=== PATIENT | female | born 1940 | race Caucasian/White ===

== ENCOUNTER 2017-02-21 08:14 | Outpatient (RCR) | payer MEDICARE ==
[2017-02-19 09:10] VITALS: BP 134/71
[2017-02-19] MEDS: ACETAMINOPHEN 325 MG TABLET/CAPLET (TYLENOL) PO SCH (09:15)
[2017-02-19] MEDS: diphenhydrAMINE 50 MG/ML INJ (BENADRYL) IV SCH (09:16)
[2017-02-19] MEDS: IRON SUCROSE IV SCH ×2 (09:43)
[2017-02-19] MEDS: SODIUM CHLORIDE IV SCH ×2 (09:43)
[2017-02-19 10:00] VITALS: BP 134/71
[~2017-02-21] VITALS: Ht 167.6 cm; Wt 77.1 kg
[~2017-02-21 08:14] MED LIST: ASP81TEC PO; ATOR20TA66 PO; AZTH250C PO; AZTH50T PO; CHOL378P PO; CTLP20T PO; CYAN25005 SL; DICL75TA2 PO; FISH OIL 1,2001 EAC1 PO; GABA-488 PO; GEMF600T3 PO; GLUC1TAB60 PO; GLUC500C2 PO; GMFB600T PO; HYDR-3454 PO; HYDR12.56 PO; LACT1CAP62 PO; LOVA10TA PO; MULT1CAP27 PO; OMEP20TA2 PO; POTA20TA7 PO; PRD20T PO; VERA240C2 PO; VITAMIN B PO
[2017-02-21] MEDS: ACETAMINOPHEN 325 MG TABLET/CAPLET (TYLENOL) PO SCH (08:23)
[2017-02-21] MEDS: diphenhydrAMINE 50 MG/ML INJ (BENADRYL) IV SCH (08:24)
[2017-02-21] MEDS: IRON SUCROSE IV SCH ×2 (08:39)
[2017-02-21] MEDS: SODIUM CHLORIDE IV SCH ×2 (08:39)
[2017-02-21 08:55] VITALS: BP 124/74
== END 2017-05-20 | disposition home or self-care (01) ==
LOC: SDC 08:14
PROVIDERS: ATTEND Nurse Practitioner Family
DX: D50.9 Iron deficiency anemia, unspecified (principal)
CPT/HCPCS: 96365

== ENCOUNTER 2017-06-04 13:09 | Emergency (ER) | payer MEDICARE ==
[~2017-06-04] VITALS: Ht 167.6 cm; Wt 71.7 kg
[2017-06-04] MEDS ORDERED: ASPIRIN 81 MG CHEW (CHILDREN'S ASA) PO ONE (13:30)
[2017-06-04 13:31] LABS: BASOPHILS % (AUTO) 1 % (0-10); EOSINOPHILS # (AUTO) 0.3 10^3/uL (0.0-0.3); EOSINOPHILS % (AUTO) 4 % (0-10); LYMPHOCYTES # (AUTO) 0.9 X 10^3 (1.0-4.0); LYMPHOCYTES % (AUTO) 11 % (12-44); MEAN CORPUSCULAR HEMOGLOBIN 31 PG (25-34); MEAN CORPUSCULAR HGB CONC 32 G/DL (32-36); MEAN CORPUSCULAR VOLUME 98 FL (80-99); MEAN PLATELET VOLUME 9.5 FL (7.4-10.4); MONOCYTES # (AUTO) 0.6 X 10^3 (0.0-1.0); MONOCYTES % (AUTO) 7 % (0-12); NEUTROPHILS # (AUTO) 6.3 X 10^3 (1.8-7.8); NEUTROPHILS % (AUTO) 78 % (42-75); PLATELET COUNT 345 10^3/uL (130-400); RED BLOOD COUNT 3.18 10^6/uL (4.35-5.85); RED CELL DISTRIBUTION WIDTH 14.2 % (10.0-14.5); WHITE BLOOD COUNT 8.1 10^3/uL (4.3-11.0)
[2017-06-04 13:41] LABS: INR 0.9 (0.8-1.4); PROTHROMBIN TIME PATIENT 12.1 SEC (12.2-14.7)
--- NOTE | 2017-06-04 13:48 | ED Chest Pain ---
General Chief Complaint: Chest Pain Stated Complaint: CHEST PAIN Nursing Triage Note: Pt c/o chest pain in L upper chest since (05/31). Pt reports pain has gotten worse over past 4 days. Pt sent here from Dr. Oconnor's office. Nursing Sepsis Screen: No Definite Risk Source: patient Exam Limitations: no limitations History of Present Illness Time seen by provider: 13:10 Initial Comments Here with complaint of left-sided chest discomfort is been going on essentially for the last year but worse over the last 4 days and has been persistent. She was sent here from Dr. Oocnnor's office for evaluation. Denies breathing problems or sweating. Denies fever or chills. Pain is to the left side and occasionally radiates to the left shoulder. She states that briefly radiated to the right shoulder. She states this is been persistent since onset 4 days ago without relief. She is taking [id number] Excedrin for the pain which helps a little bit. Timing/Duration: 4-5 days Severity/Quality: moderate, aching Location: central Radiation: shoulders Activities at Onset: none Prior CP/Workup: cardiac cath, echocardiography, stress test Modifying Factors: improves with rest ASA po PROCEDURES ANALYST: No NTG SL PROCEDURES ANALYST: No Associated Symptoms: No abdominal pain, No back pain, No diaphoresis, No fatigue, No fever/chills, No nausea/vomiting, No shortness of breath, No weakness Allergies and Home Medications Allergies Coded Allergies: pravastatin (Unverified Adverse Reaction, Mild, EXTREME FATIGUE, 09/02/13) Home Medications Atorvastatin 20 Mg Tablet, 20 MG PO DAILY, #0 Prescribed by: PRANAY VAZQUEZ on 12/30/14 1220 Azathioprine 50 Mg Tablet, 1 TAB PO TID, #90 (Reported) Citalopram Hydrobromide 20 Mg Tablet, 20 MG PO DAILY, (Reported) Cyanocobalamin 2,500 Mcg Tab.subl, 2,500 MCG SL DAILY, #0 Prescribed by: PRANAY VAZQUEZ on 12/30/14 1220 Diclofenac Sodium 75 Mg Tablet.dr, 75 MG PO BID, (Reported) Gabapentin 300 Mg Capsule, 300 MG PO TID, #0 Prescribed by: PRANAY VAZQUEZ on 12/30/14 1220 Gemfibrozil 600 Mg Tablet, 1 EACH PO BID, (Reported) Awudiirb-Vcojgey-Zolt 149-Hyal 1 Each Tablet, 1 TAB PO BID, (Reported) GLUCOSAMINE 1500MG CHONDROITIN 1200MG Multivitamins 1 Each Capsule, 1 CAP PO DAILY, (Reported) COMPLETE WOMEN 50+ [place]-3 Fatty Acids/Fish Oil 1 Each Capsule, 1,200 MG PO BID, (Reported) Verapamil Hcl 240 Mg Cap24h.pel, 240 MG PO DAILY, (Reported) Review of Systems Constitutional: see HPI, No chills, No fever EENTM: No Symptoms Reported Respiratory: No Symptoms Reported Cardiovascular: See HPI, Chest Pain, Denies Edema Gastrointestinal: No Symptoms Reported Genitourinary: No Symptoms Reported Musculoskeletal: No joint pain, muscle pain Skin: no symptoms reported Psychiatric/Neurological: No Symptoms Reported All Other Systems Reviewed Negative Unless Noted: Yes Past Hhcmawn-Pjvxkf-Zcgzgv Hx Patient Social History Alcohol Use: Denies Use Recreational Drug Use: No Smoking Status: Former Smoker Type Used: Cigarettes Recent Foreign Travel: No Contact w/Someone Who Travel: No Recent Infectious Disease Expo: No Immunizations Up To Date Date of Pneumonia Vaccine: Oct 24, 2012 Date of Influenza Vaccine: Aug 19, 2014 Seasonal Allergies Seasonal Allergies: No Surgeries HX Surgeries: Yes (HERNIATED DISK, ROTATOR CUFF, RIGHT TARSAL TUNNEL) Surgeries: Tubal Ligation Respiratory Hx Respiratory Disorders: No Cardiovascular Hx Cardiac Disorders: Yes Cardiac Disorders: Irregular Heartbeat Neurological Hx Neurological Disorders: No Reproductive System Hx Reproductive Disorders: No Sexually Transmitted Disease: No HIV/AIDS: No Female Reproductive Disorders: Denies Genitourinary Hx Genitourinary Disorders: No Gastrointestinal Hx Gastrointestinal Disorders: Yes (REFLUX; CROHNS DISEASE) Gastrointestinal Disorders: Gastroesophageal Reflux, Diverticulosis, Irritable Bowel Musculoskeletal Hx Musculoskeletal Disorders: Yes Musculoskeletal Disorders: Arthritis Endocrine Hx Endocrine Disorders: No HEENT HX ENT Disorders: No Cancer Hx Cancer: No Psychosocial Hx Psychiatric Problems: Yes Behavioral Health Disorders: Anxiety Integumentary HX Skin/Integumentary Disorder: No Blood Transfusions Hx Blood Disorders: No Reviewed Nursing Assessment Reviewed/Agree w Nursing PMH: Yes Family Medical History Significant Family History: Heart Disease, Hypertension Physical Exam Vital Signs Vital Sign - Last 12Hours 06/04/17 13:19 Temp 98.4 Pulse 74 Resp 18 B/P (MAP) 136/75 Pulse Ox 95 O2 Delivery Room Air Capillary Refill : Less Than 3 Seconds General Appearance: No Apparent Distress, WD/WN HEENT: PERRL/EOMI, Pharynx Normal Neck: Non Tender, Supple Respiratory: Lungs Clear, Normal Breath Sounds Cardiovascular: Regular Rate, Rhythm, No Murmur Gastrointestinal: Non Tender, Soft Extremity: Normal Capillary Refill, Normal Inspection, Non Tender Neurologic/Psychiatric: Alert, Oriented x3 Skin: Normal Color, Warm/Dry Progress/Results/Core Measures Results/Orders Lab Results Laboratory Tests Test 06/04/17 13:23 Range/Units White Blood Count 8.1 4.3-11.0 10^3/uL Red Blood Count 3.18 L 4.35-5.85 10^6/uL Hemoglobin 9.8 L 11.5-16.0 G/DL Hematocrit 31 L 35-52 % Mean Corpuscular Volume 98 80-99 FL Mean Corpuscular Hemoglobin 31 25-34 PG Mean Corpuscular Hemoglobin Concent 32 32-36 G/DL Red Cell Distribution Width 14.2 10.0-14.5 % Platelet Count 345 130-400 10^3/uL Mean Platelet Volume 9.5 7.4-10.4 FL Neutrophils (%) (Auto) 78 H 42-75 % Lymphocytes (%) (Auto) 11 L 12-44 % Monocytes (%) (Auto) 7 0-12 % Eosinophils (%) (Auto) 4 0-10 % Basophils (%) (Auto) 1 0-10 % Neutrophils # (Auto) 6.3 1.8-7.8 X 10^3 Lymphocytes # (Auto) 0.9 L 1.0-4.0 X 10^3 Monocytes # (Auto) 0.6 0.0-1.0 X 10^3 Eosinophils # (Auto) 0.3 0.0-0.3 10^3/uL Basophils # (Auto) 0.0 0.0-0.1 10^3/uL Prothrombin Time 12.1 L 12.2-14.7 SEC INR Comment 0.9 0.8-1.4 Activated Partial Thromboplast Time 27 24-35 SEC D-Dimer 0.51 H 0.00-0.49 UG/ML Sodium Level 143 135-145 MMOL/L Potassium Level 3.5 L 3.6-5.0 MMOL/L Chloride Level 110 H 98-107 MMOL/L Carbon Dioxide Level 23 21-32 MMOL/L Anion Gap 10 5-14 MMOL/L Blood Urea Nitrogen 12 7-18 MG/DL Creatinine 0.76 0.60-1.30 MG/DL Estimat Glomerular Filtration Rate > 60 BUN/Creatinine Ratio 16 Glucose Level 111 H 70-105 MG/DL Calcium Level 8.7 8.5-10.1 MG/DL Magnesium Level 1.8 1.8-2.4 MG/DL Total Bilirubin 0.4 0.1-1.0 MG/DL Aspartate Amino Transf (AST/SGOT) 9 5-34 U/L Alanine Aminotransferase (ALT/SGPT) 11 0-55 U/L Alkaline Phosphatase 65 40-136 U/L Myoglobin 14.8 10.0-92.0 NG/ML Troponin I < 0.30 <0.30 NG/ML B-Type Natriuretic Peptide 60.6 <100.0 PG/ML Total Protein 6.3 L 6.4-8.2 GM/DL Albumin 3.7 3.2-4.5 GM/DL Amylase Level 51 25-125 U/L Lipase 15 8-78 U/L My Orders Orders - ROGER COFFEY MD Cbc With Automated Diff (06/04/17 13:20) Magnesium (06/04/17 13:20) Chest 1 View, Ap/Pa Only (06/04/17 13:20) Ekg Tracing (06/04/17 13:20) Cardiac Profile 1 (06/04/17 13:20) Comprehensive Metabolic Panel (06/04/17 13:20) Myoglobin Serum (06/04/17 13:20) Protime With Inr (06/04/17 13:20) Partial Thromboplastin Time (06/04/17 13:20) O2 (06/04/17 13:20) Monitor-Rhythm Ecg Trace Only (06/04/17 13:20) Lipid Panel (06/05/17 06:00) Aspirin Chewable Tablet (Baby Aspirin Ch (06/04/17 13:30) Saline Lock/Iv-Start (06/04/17 13:20) Lipase (06/04/17 13:20) Amylase (06/04/17 13:20) BNP (06/04/17 13:20) Fibrin Degradation Products (06/04/17 13:20) Ns Iv 1000 Ml (Sodium Chloride 0.9%) (06/04/17 14:05) Ct Angio Chest W (06/04/17 14:05) Iohexol Injection (Omnipaque 350 Mg/Ml 1 (06/04/17 14:15) Ns (Ivpb) (Sodium Chloride 0.9% Ivpb Bag (06/04/17 14:15) Ketorolac Injection (Toradol Injection) (06/04/17 15:01) Medications Given in ED Current Medications Medications Dose Ordered Sig/Suzanne Route Start Time Stop Time Status Last Admin Dose Admin Aspirin 324 mg ONCE ONCE PO 06/04/17 13:30 06/04/17 13:31 DC 06/04/17 13:37 324 MG Iohexol 150 ml ONCE ONCE IV 06/04/17 14:15 06/04/17 14:16 DC 06/04/17 14:29 125 ML Sodium Chloride 100 ml ONCE ONCE IV 06/04/17 14:15 06/04/17 14:16 DC 06/04/17 14:29 80 ML Sodium Chloride 1,000 ml @ 0 mls/hr Q0M ONCE IV 06/04/17 14:05 06/04/17 14:07 DC 06/04/17 14:17 1,000 MLS/HR Vital Signs/I&O Vital Sign - Last 12Hours 06/04/17 13:19 Temp 98.4 Pulse 74 Resp 18 B/P (MAP) 136/75 Pulse Ox 95 O2 Delivery Room Air Blood Pressure Mean: 95 Progress Note : Progress Note Seen and evaluated. IV, labs, EKG and chest x-ray ordered. ASA 324 mg by mouth given. Monitor patient. CT angiogram of the chest ordered due to elevated d-dimer. Normal saline 1 L bolus. Monitor patient. 1500: CT angiogram is negative for pulmonary embolism. There is a question of some atelectasis versus infiltrate in the right upper lobe. We will consider treatment as outpatient. This was discussed with the patient who agrees. Toradol 15 mg IV given for the left chest wall pain. Monitor patient. Discharged home with return precautions. Patient verbalize understanding instructions and agreement with plan. ECG Initial ECG Impression Date: Jun 04, 2017 Initial ECG Impression Time: 13:14 Initial ECG Rate: 76 Initial ECG Rhythm: Normal Sinus Initial ECG Comparisson: Unchanged Comment Sinus rhythm with normal axis. No evidence of ST elevation MA. Unchanged from previous. Interpreted by me. Diagnostic Imaging Diagonstic Imaging: Xray Plain Films/CT/US/NM/MRI: chest Comments NAME: PHAN MERCADO [facility] REC#: [id number] PT STATUS: REG ER : 1940 PHYSICIAN: ROGER COFFEY MD ADMIT DATE: 06/04/17/ER Signed Date of Exam: 06/04/17 CHEST 1 VIEW, AP/PA ONLY EXAMINATION: Portable upright radiograph of the chest. INDICATION: Chest pain. FINDINGS: The lungs are clear. The heart size is normal. No effusion or pneumothorax. The mediastinum and janet appear unremarkable. IMPRESSION: Unremarkable exam. Dictated by: Dictated on workstation # [id number] Dict: 06/04/17 1347 Trans: 06/04/17 1401 Interpreted by: BUCK GONZALEZ MD Electronically signed by: BUCK GONZALEZ MD 06/04/17 1401 Diagonstic Imaging: CT Plain Films/CT/US/NM/MRI: chest Comments VIA [facility], [facility]. [place], [place] NAME: PHAN MERCADO [facility] REC#: [id number] PT STATUS: REG ER : 1940 PHYSICIAN: ROGER COFFEY MD ADMIT DATE: 06/04/17/ER Draft Date of Exam:06/04/17 CT ANGIO CHEST W PROCEDURE: CT angiography of the chest with contrast. TECHNIQUE: Multiple contiguous axial images were obtained through the chest after uneventful bolus administration of intravenous contrast. Reconstructed CTA MIP acquisitions were also performed. INDICATION: Chest pain with elevated D-dimer. COMPARISON: None available. FINDINGS: Vasculature: No pulmonary emboli. No CT evidence of pulmonary hypertension or right ventricular strain. Thoracic aorta is normal in caliber. No aortic dissection or pseudoaneurysm. 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 Heart and mediastinum: Visualized thyroid is normal. No supraclavicular, axillary, or intra-thoracic lymphadenopathy. The heart is normal in size without pericardial effusion. Pleura: No pleural effusion or pneumothorax. Lungs and airway: No endoluminal lesion in the trachea or central bronchi. A small cluster of centrilobular opacities are present in the posterior aspect of the right upper lobe. Dependent atelectasis and minimal compressive atelectasis is present in the posterior lower lobes. No concerning pulmonary mass or nodule. Upper abdomen: Allowing for the phase of contrast, no acute abnormality in the upper abdomen is seen. Cholecystectomy. Musculoskeletal: No concerning osseous lesion. IMPRESSION: 1. No pulmonary emboli or evidence of aortic dissection. 2. Small cluster of centrilobular opacities in the posterior right upper lobe are likely due to an infectious bronchiolitis. Dictated on workstation # [id number] Dict: 06/04/17 1441 Trans: 06/04/17 1448 [id number] Interpreted by: JACK HENSLEY MD Electronically signed by: Departure Impression Impression: Primary Impression: Chest pain Qualified Codes: R07.9 - Chest pain, unspecified Additional Impressions: Bronchitis Pleurisy Disposition: 01 HOME, SELF-CARE Condition: Improved Departure-Patient Inst. Decision time for Depature: 15:27 Referrals: RAFFY GRANT MD (PCP/Family) Primary Care Physician Patient Instructions: Acute Bronchitis, Adult (DC), Chest Pain (DC), Pleuritic Chest Pain (DC) Add. Discharge Instructions: All discharge instructions reviewed with patient and/or family. Voiced understanding. Take medications as directed. Follow-up with your DrLeticia in a few days for recheck. Return for worse pain, fever, vomiting, weakness, breathing problems or other concerns as needed. Scripts Prednisone (Prednisone) 20 Mg Tab 40 MG PO DAILY, #10 TAB 0 Refills Prov: ROGER COFFEY MD 06/04/17 Hydrocodone/Acetaminophen (Hydrocodon -Acetaminophen 5-325) 1 Each Tablet 1-2 EACH PO Q6H Y for PAIN-MODERATE, #12 TAB 0 Refills Prov: ROGER COFFEY MD 06/04/17 Doxycycline Hyclate (Doxycycline Hyclate) 100 Mg Tablet 100 MG PO BID, #20 TAB 0 Refills Prov: ROGER COFFEY MD 06/04/17 Copy Copies To 1: RAFFY GRANT MD Copies To 2: LALITA OCONNOR MD, TIMOTHY D MD Jun 04, 2017 13:48
[2017-06-04 13:52] LABS: ANION GAP 10 MMOL/L (5-14); BLOOD UREA NITROGEN 12 MG/DL (7-18); CARBON DIOXIDE 23 MMOL/L (21-32); CHLORIDE 110 MMOL/L (98-107); CREATININE SERUM 0.76 MG/DL (0.60-1.30); POTASSIUM 3.5 MMOL/L (3.6-5.0); SODIUM 143 MMOL/L (135-145)
[2017-06-04 13:53] LABS: ALANINE AMINOTRANSFERASE 11 U/L (0-55); ALBUMIN 3.7 GM/DL (3.2-4.5); AMYLASE 51 U/L (25-125); ASPARTATE AMINO TRANSFERASE 9 U/L (5-34); BILIRUBIN,TOTAL 0.4 MG/DL (0.1-1.0); BUN/CREATININE RATIO 16; CALCIUM 8.7 MG/DL (8.5-10.1); GFR ESTIMATED > 60; GLUCOSE 111 MG/DL (70-105); LIPASE 15 U/L (8-78); MAGNESIUM 1.8 MG/DL (1.8-2.4); TOTAL PROTEIN 6.3 GM/DL (6.4-8.2)
[2017-06-04 13:59] LABS: MYOGLOBIN SERUM 14.8 NG/ML (10.0-92.0)
[2017-06-04] MEDS ORDERED: NS IV 1000 ML 1,000 ML IV ONE (14:05)
[2017-06-04] MEDS ORDERED: IOHEXOL 350 MG/ML 150 ML (OMNIPAQUE 350) VIAL IV ONE (14:15)
[2017-06-04] MEDS ORDERED: NS 100 ML (IVPB) BAG IV ONE (14:15)
--- NOTE | 2017-06-04 14:48 | Diagnostic Imaging Report ---
PROCEDURE: CT angiography of the chest with contrast. TECHNIQUE: Multiple contiguous axial images were obtained through the chest after uneventful bolus administration of intravenous contrast. Reconstructed CTA MIP acquisitions were also performed. INDICATION: Chest pain with elevated D-dimer. COMPARISON: None available. FINDINGS: Vasculature: No pulmonary emboli. No CT evidence of pulmonary hypertension or right ventricular strain. Thoracic aorta is normal in caliber. No aortic dissection or pseudoaneurysm. 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 Heart and mediastinum: Visualized thyroid is normal. No supraclavicular, axillary, or intra-thoracic lymphadenopathy. The heart is normal in size without pericardial effusion. Pleura: No pleural effusion or pneumothorax. Lungs and airway: No endoluminal lesion in the trachea or central bronchi. A small cluster of centrilobular opacities are present in the posterior aspect of the right upper lobe. Dependent atelectasis and minimal compressive atelectasis is present in the posterior lower lobes. No concerning pulmonary mass or nodule. Upper abdomen: Allowing for the phase of contrast, no acute abnormality in the upper abdomen is seen. Cholecystectomy. Musculoskeletal: No concerning osseous lesion. IMPRESSION: 1. No pulmonary emboli or evidence of aortic dissection. 2. Small cluster of centrilobular opacities in the posterior right upper lobe are likely due to an infectious bronchiolitis. Dictated by: Dictated on workstation # [id number]
[2017-06-04] MEDS ORDERED: KETOROLAC 30 MG/ML VIAL IVP STA (15:01)
[2017-06-04] MEDS ORDERED: HYDR-3812 PO (15:30)
[2017-06-04] MEDS ORDERED: DOXY100T2 PO (15:30)
[2017-06-04] MEDS ORDERED: PRD20T PO (15:30)
[2017-06-04 15:52] VITALS: BP 141/72
== END 2017-06-04 15:52 | disposition home or self-care (01) ==
LOC: EDUNIT# 13:09 → ER 13:11
DX: R07.89 Other chest pain (principal); J40 Bronchitis, not specified as acute or chronic; K21.9 Gastro-esophageal reflux disease without esophagitis; F41.9 Anxiety disorder, unspecified; M19.90 Unspecified osteoarthritis, unspecified site; Z82.49 Family history of ischemic heart disease and other diseases of the circulatory system; Z87.19 Personal history of other diseases of the digestive system; Z87.891 Personal history of nicotine dependence; Z98.51 Tubal ligation status
CPT/HCPCS: 36415; 71010; 71275; 80053; 82150; 83690; 83735; 83874; 83880; 84484; 85025; 85379; 85610; 85730; 93005; 93041; 96374

== ENCOUNTER → 2017-08-20 | Outpatient (CLI) | payer MEDICARE ==
[~2017-08-20] MED LIST changes: +DOXY100T2 PO; +HYDR-3812 PO
--- NOTE | 2017-08-21 00:25 | STRESS TEST ---
DATE OF SERVICE: 08/20/2017 EXERCISE STRESS ECHOCARDIOGRAM Baseline heart rate is 75. Baseline blood pressure 134/70. Baseline EKG is sinus rhythm with no ischemic changes. In summary, the patient started exercising with a baseline heart rate, blood pressure, EKG mentioned above. She was able to exercise for 3 minutes on standard Mejia protocol, achieving maximum heart rate of 147, which is 100% of maximum expected heart rate. With peak exercise level, EKG was showing nondiagnostic changes. Blood pressure was up to 229/98. During recovery, heart rate and blood pressure returned to baseline. Echocardiographic images were acquired and reviewed in the parasternal long axis, parasternal short axis, apical four chamber and apical two chamber views. Review of the images showed normal left ventricular size with good contractility with no ischemic changes. Mild LVH was noted. IN CONCLUSION: 1. Poor exercise tolerance. A total of 3 minutes on standard Mejia protocol, total of 4.4 METS achieving 100% of maximum expected heart rate. 2. Severe hypertensive response to exercise returned to baseline during recovery. 3. Minimal and diagnostic EKG changes with exercise returned to baseline during recovery. 4. Mild left ventricular hypertrophy with no ischemic changes on echocardiographic images at rest and with peak stress images. Job ID: [id number] DocumentID: [id number] Dictated Date: 08/20/2017 15:49:21 Party Plan Sales Host/Hostess Date: 08/21/2017 00:25:27 Dictated By: LALITA ROCK MD
== END ==
LOC: CARD 08:05
PROVIDERS: ATTEND Internal Medicine Cardiovascular Disease
DX: R07.89 Other chest pain (principal); I25.10 Atherosclerotic heart disease of native coronary artery without angina pectoris; I10 Essential (primary) hypertension; R09.89 Other specified symptoms and signs involving the circulatory and respiratory systems
CPT/HCPCS: 93306; 93351

== ENCOUNTER → 2019-06-10 | Outpatient (CLI) | payer MEDICARE ==
[~2019-06-10] MED LIST changes: +ACHD5005 PO; -HYDR-3812 PO
--- NOTE | 2019-06-10 14:52 | Diagnostic Imaging Report ---
INDICATION: Routine screening. COMPARISON: 08/05/2013. TECHNIQUE: 2D and 3D bilateral screening mammography was performed with CAD. FINDINGS: Both breasts remain heterogeneously dense, limiting the sensitivity of mammography. Benign calcifications in both breasts are again noted. No dominant mass or malignant appearing microcalcifications are seen. The axillae are unremarkable. IMPRESSION: No mammographic features suspicious for malignancy are identified. ACR BI-RADS Category 2: Benign findings. Result letter will be mailed to the patient. Note: At least 10% of breast cancer is not imaged by mammography. Dictated by: Dictated on workstation # [id number]
== END ==
LOC: RAD 08:44
PROVIDERS: ATTEND Nurse Practitioner Family
DX: Z12.31 Encounter for screening mammogram for malignant neoplasm of breast (principal)
CPT/HCPCS: 77067

== ENCOUNTER → 2019-08-25 | Outpatient (CLI) | payer MEDICARE ==
--- NOTE | 2019-08-25 12:20 | Diagnostic Imaging Report ---
INDICATION: Knee and hip pain. COMPARISON: None. FINDINGS: Two views of the right hip were obtained and show no fractures, dislocations, or other acute bony abnormalities. Joint spaces are well maintained throughout. The soft tissues appear unremarkable. No radiopaque foreign bodies are identified. IMPRESSION: Unremarkable radiographic exam of the right hip. Dictated by: Dictated on workstation # [id number]
--- NOTE | 2019-08-25 12:21 | Diagnostic Imaging Report ---
INDICATION: Knee pain COMPARISON: None. FINDINGS: 3 views of the right knee joint demonstrate no acute fracture or dislocation. No focal osseous lesions are seen. No significant joint effusion is seen. The surrounding soft tissue structures are unremarkable. There are no radiopaque foreign bodies. Mild tricompartmental osteoarthritis is noted. IMPRESSION: 1. No acute fractures or dislocations of the right knee joint. Dictated by: Dictated on workstation # [id number]
== END ==
LOC: RAD 10:28
PROVIDERS: ATTEND Family Medicine
DX: M25.551 Pain in right hip (principal); M25.561 Pain in right knee; Z78.0 Asymptomatic menopausal state
CPT/HCPCS: 73502; 73562

== ENCOUNTER → 2019-09-16 | Outpatient (CLI) | payer MEDICARE ==
--- NOTE | 2019-09-16 13:30 | Diagnostic Imaging Report ---
INDICATION: 79-year-old asymptomatic postmenopausal female COMPARISON: None available. FINDINGS: AP Spine L1-L4: [BMD (g/cm2): 1.237] [T-Score: 0.3] [Z-Score: 1.8] [BMD Previous: na] [BMD % Change: na] LT Hip Neck: [BMD (g/cm2): 0.829] [T-Score: -1.5] [Z-Score: 0.3] LT Hip Total: [BMD (g/cm2):0.845] [T-Score:-1.3] [Z-Score: 0.3] [BMD Previous: na] [BMD % Change: na] RT Hip Neck: [BMD (g/cm2):0.830] [T-Score:-1.5] [Z-Score:0.3] RT Hip Total: [BMD (g/cm2):0.847] [T-score:-1.3] [Z-Score:0.3] [BMD Previous:na] [BMD % Change:na] *Indicates significant change from prior examination based on 95% confidence level. World Health Organization criteria for BMD interpretation classify patients as Normal (T-score at or above -1.0), Osteopenic (T-score between -1.0 and -2.5) or Osteoporotic (T-score at or below -2.5). LIMITATIONS AND MODIFICATION: None. FRACTURE RISK (FRAX SCORE): The ten year probability of (%): Major Osteoporotic Fracture: [12.4] Hip Fracture: [2.7] IMPRESSION: 1. Osteopenia (Low bone mass). 2. Baseline examination. 3. See below National Osteoporosis Foundation guidelines on when to potentially initiate pharmacologic therapy. Based on the National Osteoporosis Foundation Guidelines, pharmacologic treatment should be initiated in any of the following, unless clinical conditions suggest otherwise: * Any patient with prior fragility fracture of the hip or vertebrae. A spine fracture indicates 5X risk for subsequent spine fracture and 2X risk for subsequent hip fracture. * Osteoporosis (T-score <-2.5). * Postmenopausal women and men age 50 and older with low bone mass/osteopenia (T-score between -1.0 and -2.5) by DXA and 10-year major osteoporotic fracture greater than 20% or a 10-year probability of hip fracture greater than 3%. These fracture risks are supplied above in the FRAX score, if applicable. * Clinician judgement and/or patient preferences may indicate treatment for people with 10-year fracture probabilities above or below these levels. Dictated by: Dictated on workstation # [id number]
== END ==
LOC: RAD 09:35
PROVIDERS: ATTEND Family Medicine
DX: M85.89 Other specified disorders of bone density and structure, multiple sites (principal); M89.8X9 Other specified disorders of bone, unspecified site; Z78.0 Asymptomatic menopausal state
CPT/HCPCS: 77080

== ENCOUNTER 2019-10-05 11:11 | Emergency (ER) | payer MEDICARE ==
[~2019-10-05] VITALS: Ht 166 cm; Wt 76.3 kg
[2019-10-05 11:27] LABS: BACTERIA,URINE FEW /HPF; BILIRUBIN,URINE NEGATIVE (NEGATIVE); CLARITY,URINE CLOUDY; COLOR,URINE YELLOW; GLUCOSE, URINE (UA) NEGATIVE (NEGATIVE); KETONES,URINE TRACE (NEGATIVE); LEUKOCYTE ESTERASE ,URINE 1+ (NEGATIVE); NITRITE,URINE POSITIVE (NEGATIVE); PROTEIN,URINE 2+ (NEGATIVE); RBC,URINE >100 /HPF; WBC,URINE >100 /HPF
[2019-10-05] MEDS ORDERED: SULF1TAB35 PO (11:51)
--- NOTE | 2019-10-05 11:51 | ED GU-Female ---
General Stated Complaint: PAINFUL URINATION Source: patient Exam Limitations: no limitations History of Present Illness Date Seen by Provider: Oct 05, 2019 Time Seen by Provider: 11:36 Initial Comments The patient resents to ER by private conveyance with chief complaint of last couple days progressively worsening burning on urination. She pleasantly for Lonnie ulrich on Sunday so she wanted to get this taken care of. She's never had a bladder infection before in her life. No history of kidney stones. No flank pain and back pain fevers chills nausea vomiting or diarrhea. She does have a history of Crohn's but she's not on anti-immunologic's. She seen no blood in the urine. Allergies and Home Medications Allergies Coded Allergies: pravastatin (Unverified Adverse Reaction, Mild, EXTREME FATIGUE, 09/02/13) Home Medications Atorvastatin 20 Mg Tablet, 20 MG PO DAILY Prescribed by: PRANAY VAZQUEZ on 12/30/14 1220 Azathioprine 50 Mg Tablet, 1 TAB PO TID, (Reported) Citalopram Hydrobromide 20 Mg Tablet, 20 MG PO DAILY, (Reported) Cyanocobalamin 2,500 Mcg Tab.subl, 2,500 MCG SL DAILY Prescribed by: PRANAY VAZQUEZ on 12/30/14 1220 Diclofenac Sodium 75 Mg Tablet.dr, 75 MG PO BID, (Reported) Doxycycline Hyclate 100 Mg Tablet, 100 MG PO BID Prescribed by: ROGER COFFEY on 06/04/17 153 Gabapentin 300 Mg Capsule, 300 MG PO TID Prescribed by: PRANAY VAZQUEZ on 12/30/14 1220 Gemfibrozil 600 Mg Tablet, 1 EACH PO BID, (Reported) Ldxwqerx-Wphqkxo-Qnba 149-Hyal 1 Each Tablet, 1 TAB PO BID, (Reported) GLUCOSAMINE 1500MG CHONDROITIN 1200MG Hydrocodone Bit/Acetaminophen 1 Each Tablet, 1-2 EACH PO Q6H PRN for PAIN- MODERATE Prescribed by: ROGER COFFEY on 06/04/17 1530 Multivitamins 1 Each Capsule, 1 CAP PO DAILY, (Reported) COMPLETE WOMEN 50+ [place]-3 Fatty Acids/Fish Oil 1 Each Capsule, 1,200 MG PO BID, (Reported) Prednisone 20 Mg Tab, 40 MG PO DAILY Prescribed by: ROGER COFFEY on 06/04/17 1530 Verapamil Hcl 240 Mg Cap24h.pel, 240 MG PO DAILY, (Reported) Patient Home Medication List Home Medication List Reviewed: Yes Review of Systems Review of Systems Constitutional: No chills, No diaphoresis, No fever EENTM: No ear pain, No eye pain Respiratory: No cough, No short of breath Cardiovascular: No chest pain, No edema Gastrointestinal: No abdominal pain, No nausea, No vomiting Genitourinary: burning; denies discharge; dysuria; denies flank pain, denies hematuria All Other Systemes Reviewed Negative Unless Noted: Yes Past Rtfwndx-Dteqwk-Zgyrst Hx Patient Social History Alcohol Use: Denies Use Recreational Drug Use: No Smoking Status: Current Everyday Smoker Type Used: Cigarettes Immunizations Up To Date Date of Pneumonia Vaccine: Oct 24, 2012 Date of Influenza Vaccine: Aug 19, 2014 Seasonal Allergies Seasonal Allergies: No Past Medical History Surgeries: Yes (HERNIATED DISK, ROTATOR CUFF, RIGHT TARSAL TUNNEL) Tubal Ligation Respiratory: No Cardiac: Yes Irregular Heartbeat Neurological: No Reproductive Disorders: No Female Reproductive Disorders: Denies Sexually Transmitted Disease: No HIV/AIDS: No Gastrointestinal: Yes (REFLUX; CROHNS DISEASE) Gastroesophageal Reflux, Diverticulosis, Irritable Bowel Musculoskeletal: Yes Arthritis Endocrine: No Cancer: No Psychosocial: Yes Anxiety Integumentary: No Blood Disorders: No Family Medical History Heart Disease, Hypertension Physical Exam Vital Signs Capillary Refill : Height, Weight, BMI Height: 5'6.00" Weight: 158lbs. 0.0oz. [id number]; 25.7 BMI Method:Stated General Appearance: WD/WN, no apparent distress HEENT: PERRL/EOMI, pharynx normal Cardiovascular: normal peripheral pulses, regular rate, rhythm Respiratory: no respiratory distress, no accessory muscle use Extremities: normal range of motion, normal inspection Neurologic/Psychiatric: alert, normal mood/affect, oriented x 3 Skin: normal color, warm/dry Progress/Results/Core Measures Suspected Sepsis SIRS Temperature: Pulse: Respiratory Rate: Blood Pressure / Mean: Results/Orders Lab Results Laboratory Tests Test 10/05/19 11:15 Range/Units Urine Color YELLOW Urine Clarity CLOUDY Urine pH 6.0 5-9 Urine Specific [place] >1.030 1.016-1.022 Urine Protein 2+ H NEGATIVE Urine Glucose (UA) NEGATIVE NEGATIVE Urine Ketones TRACE H NEGATIVE Urine Nitrite POSITIVE H NEGATIVE Urine Bilirubin NEGATIVE NEGATIVE Urine Urobilinogen 2.0 < = 1.0 MG/DL Urine Leukocyte Esterase 1+ H NEGATIVE Urine RBC (Auto) 3+ H NEGATIVE Urine RBC >100 H /HPF Urine WBC >100 H /HPF Urine Crystals NONE /LPF Urine Bacteria FEW H /HPF Urine Casts NONE /LPF Urine Mucus NEGATIVE /LPF Urine Culture Indicated YES My Orders Orders - LULY MADDOX Ua Culture If Indicated (10/05/19 11:12) Urine Culture (10/05/19 11:15) Vital Signs/I&O Capillary Refill : Departure Impression Primary Impression: UTI (urinary tract infection) Qualified Codes: N30.01 - Acute cystitis with hematuria Disposition: HOME, SELF-CARE Condition: Stable Departure-Patient Inst. Decision time for Depature: 11:50 Referrals: RAFFY GRANT MD (PCP/Family) Primary Care Physician Patient Instructions: Urinary Tract Infection, Adult (DC) Add. Discharge Instructions: Start taking the Bactrim one tablet twice a day for the next 7 days. Take the antibiotic with food as well as one capsule of probiotics of your choice twice a day until the antibiotics are done. Alternatively you can eat yogurt with active culture once or twice a day until the antibiotics are done. Drink lots of fluids. Expect improvement in 2-3 days on the antibiotics. If not then you should contact her primary care doctor for review of the urine culture. Return to the nearest ER if you begin to experience fevers, chills, nausea vomiting or other worrisome symptoms. Scripts Sulfamethoxazole/Trimethoprim (Bactrim Ds Tablet) 1 Each Tablet 1 EACH PO BID for 7 Days, #14 TAB 0 Refills Prov: LULY MADDOX 10/05/19 LULY MADDOX Oct 05, 2019 11:51 POS
[2019-10-05 11:58] VITALS: BP 128/70
[2019-10-10] MEDS ORDERED: CIPR-225 PO (18:29)
== END 2019-10-05 11:57 | disposition home or self-care (01) ==
LOC: EDUNIT# 11:11 → ER FS 11:13
DX: N39.0 Urinary tract infection, site not specified (principal); K21.9 Gastro-esophageal reflux disease without esophagitis; K58.9 Irritable bowel syndrome, unspecified; F41.9 Anxiety disorder, unspecified; F17.210 Nicotine dependence, cigarettes, uncomplicated; Z88.8 Allergy status to other drugs, medicaments and biological substances; Z79.52 Long term (current) use of systemic steroids; Z98.51 Tubal ligation status; Z82.49 Family history of ischemic heart disease and other diseases of the circulatory system
CPT/HCPCS: 81000; 87077; 87088; 87184; 99282

== ENCOUNTER → 2019-11-17 | Outpatient (CLI) | payer MEDICARE, OTHER ==
[~2019-11-17] VITALS: Ht 170 cm; Wt 78.0 kg
[~2019-11-17] MED LIST changes: +CATHETER FLUSH 10 ML SYR IV PRN; +CIPR-225 PO; +SULF1TAB35 PO
[2019-11-17 10:11] VITALS: BP 183/104
--- NOTE | 2019-11-17 16:58 | STRESS TEST ---
DATE OF SERVICE: 11/17/2019 EXERCISE MYOVIEW STRESS TEST REFERRING PHYSICIAN: Rosi Eagle MD. Baseline heart rate is 80, baseline blood pressure 145/82. Baseline EKG is sinus rhythm with no ischemic changes. In summary, the patient was injected with 10.17 mCi of technetium-99 Myoview and the resting images were obtained. Then, the patient started exercising with a baseline heart rate, blood pressure and EKG mentioned above. The patient was able to exercise for a total of 3 minutes on standard Mejia protocol. With peak exercise level, heart rate was 135, blood pressure was 183/104. EKG was showing nondiagnostic changes. During recovery, heart rate and blood pressure returned to baseline. EKG returned to baseline. The resting and stress images were reviewed and compared in the short axis, horizontal long axis, and vertical long axis views. Review of the images showed good radiotracer uptake with no significant ischemia or infarction. SSS is 3, SDS 3, TID value 1.04. On the gated images, the left ventricle appeared to be in normal size with normal contractility. Calculated ejection fraction 63%. CONCLUSION: 1. Fair exercise tolerance, a total of 3 minutes on standard Mejia protocol, total of 4.4 METs achieving 94% of maximum expected heart rate. 2. Mild hypertensive response to exercise returned to baseline during recovery. 3. Minimal nondiagnostic EKG changes with exercise returned to baseline during recovery. 4. No significant ischemia or infarction on SPECT images. 5. Normal left ventricular size with normal contractility. Calculated ejection fraction is 63%. Job ID: [id number] DocumentID: [id number] Dictated Date: 11/17/2019 12:31:03 Digital Librarian Date: 11/17/2019 16:57:28 Dictated By: LALITA ROCK MD
== END ==
LOC: CARD 08:11
PROVIDERS: ATTEND Internal Medicine Cardiovascular Disease
DX: I25.10 Atherosclerotic heart disease of native coronary artery without angina pectoris (principal); E78.2 Mixed hyperlipidemia; K21.9 Gastro-esophageal reflux disease without esophagitis; I10 Essential (primary) hypertension
CPT/HCPCS: 78452; 93017

== ENCOUNTER → 2021-08-03 | Outpatient (CLI) | payer MEDICARE ==
[~2021-08-03] MED LIST changes: +REGADENOSON 0.4 MG/5 ML SYR (LEXISCAN) IV ONE; -SULF1TAB35 PO; +SULF1TAB38 PO
[2021-08-03 09:10] VITALS: BP 154/79
--- NOTE | 2021-08-03 12:54 | Cardiology Stress Test Report ---
Stress Test Report Date of Procedure/Referring: Date of Procedure: Aug 03, 2021 PCP Lalita Oconnor MD Admitting Physician Rosi Eagle MD Indications: CAD Baseline Heart Rate: 61 Baseline Blood Pressure: Blood Pressure Systolic: 154 Blood Pressure Diastolic: 79 Baseline Vitals Vital Signs Date Time Temp Pulse Resp B/P (MAP) Pulse Ox O2 Delivery O2 Flow Rate FiO2 08/03/21 09:10 65 18 154/79 (104) 98 Room Air Baseline EKG: Baseline EKG: NSR Summary After explaining the procedure to the patient, she signed a consent and then brought to the stress nuclear laboratory. Patient received 0.4 mg Lexiscan for stress test, ECG, heart rate and blood pressure were monitored continuously. Resting and stress dose of radio tracer were injected, imaging was acquired and reviewed in short axis, horizontal long axis and vertical long axis views. TID: 1.01 SSS: 0 SDS: 0 EF: 63 1. Patient tolerated Lexiscan well 2. No significant ischemia or infarction on SPECT images 3. Normal left ventricular size, EF 63% LALITA OCONNOR MD Aug 03, 2021 12:54
== END ==
LOC: CARD 07-27 10:39
PROVIDERS: ATTEND Internal Medicine Cardiovascular Disease
DX: I25.10 Atherosclerotic heart disease of native coronary artery without angina pectoris (principal); I10 Essential (primary) hypertension
CPT/HCPCS: 78452; 93017; A9502

== ENCOUNTER → 2021-08-15 | Outpatient (CLI) | payer MEDICARE ==
[~2021-08-15] MED LIST changes: -CATHETER FLUSH 10 ML SYR IV PRN; -REGADENOSON 0.4 MG/5 ML SYR (LEXISCAN) IV ONE
--- NOTE | 2021-08-15 15:40 | Diagnostic Imaging Report ---
INDICATION: Chest pain, shortness of breath. EXAM: PA and lateral chest. FINDINGS: The heart size and pulmonary vascularity are normal. The lungs are clear. There are no effusions or pneumothoraces. IMPRESSION: Negative chest. Dictated by: Dictated on workstation # [id number]
== END ==
LOC: RAD 14:11
PROVIDERS: ATTEND Nurse Practitioner Family
DX: R07.9 Chest pain, unspecified (principal); R06.02 Shortness of breath; R09.89 Other specified symptoms and signs involving the circulatory and respiratory systems
CPT/HCPCS: 71046

== ENCOUNTER → 2021-08-29 | Outpatient (CLI) | payer MEDICARE | LOC: CARD 09:45 | PROVIDERS: ATTEND Internal Medicine Cardiovascular Disease | DX: I11.9 Hypertensive heart disease without heart failure (principal); I34.0 Nonrheumatic mitral (valve) insufficiency | CPT/HCPCS: 93306 ==

== ENCOUNTER 2022-02-24 10:00 | Outpatient (RCR) | payer MEDICARE | END 2022-03-04 | disposition home or self-care (01) | LOC: CARD 10:00 | PROVIDERS: ATTEND Internal Medicine Cardiovascular Disease | DX: I49.9 Cardiac arrhythmia, unspecified (principal) ==

== ENCOUNTER → 2022-12-12 | Outpatient (CLI) | payer MEDICARE | LOC: CARDFS 10:33 | PROVIDERS: ATTEND Internal Medicine Cardiovascular Disease | DX: I11.9 Hypertensive heart disease without heart failure (principal) | CPT/HCPCS: 93306 ==

== ENCOUNTER → 2023-01-10 | Outpatient (CLI) | payer MEDICARE ==
[~2023-01-10] VITALS: Ht 167 cm; Wt 77.0 kg
[~2023-01-10] MED LIST changes: +CATHETER FLUSH 10 ML SYR IVP PRN
[2023-01-10 09:24] VITALS: BP 134/86
--- NOTE | 2023-01-10 16:03 | Cardiology Stress Test Report ---
Stress Test Report Date of Procedure/Referring: Date of Procedure: Jan 10, 2023 PCP Frank Lyons MD Admitting Physician Admitting Physician: Attending Physician: Miguel Oconnor MD Indications: HTN Baseline Heart Rate: 64 Baseline Blood Pressure: Blood Pressure Systolic: 134 Blood Pressure Diastolic: 86 Vital Signs Date Time Temp Pulse Resp B/P (MAP) Pulse Ox O2 Delivery O2 Flow Rate FiO2 01/10/23 09:24 64 134/86 (102) Baseline Vital Signs Vital Signs Date Time Temp Pulse Resp B/P (MAP) Pulse Ox O2 Delivery O2 Flow Rate FiO2 01/10/23 09:24 64 134/86 (102) Baseline EKG: Baseline EKG: NSR Summary: After explaining the procedure and details to the patient, she signed the conse nt and was brought to the stress nuclear laboratory. Patient exercised on standard Mejia protocol, EKG, heart rate and blood pressure were monitored continuously, resting and stress doses of radio tracer were injected, imaging was acquired and reviewed in the short axis, horizontal long axis and vertical long axis views Patient was able to exercise for a total of 3 minutes on Mejia protocol, METs 4.6 Maximum heart rate 134 Maximum blood pressure 187/94 Stress EKG, Minimal nondiagnostic changes Recovery EKG, Return to baseline TID: 1.03 SSS: 3 SDS: 3 EF: 63 Conclusion: Fair exercise tolerance for a total of 3 minutes on standard Mejia protocol, 4.6 METS achieving 95% of maximal expected heart rate Appropriate heart rate and blood pressure response to exercise return to baseline during recovery Nondiagnostic EKG changes with exercise return to baseline during recovery No significant ischemia or infarction noted on SPECT images Normal left ventricular size, ejection fraction 63% Copy Copies To 1: RAFFY GRANT MD, BASHAR J MD Jan 10, 2023 16:03
== END ==
LOC: CARD 08:30
PROVIDERS: ATTEND Internal Medicine Cardiovascular Disease
DX: I10 Essential (primary) hypertension (principal)
CPT/HCPCS: 78452; 93017; A9502